=== PATIENT | female | born 1990 | race Caucasian/White ===

== ENCOUNTER 2017-07-27 10:22 | Emergency (ER) | payer MEDICAID ==
[~2017-07-27] VITALS: Ht 172.7 cm; Wt 50.0 kg
[~2017-07-27 10:22] MED LIST: CEPH500C3 PO; NAPR500 PO; PYRI200T4 PO
[2017-07-27 10:24] VITALS: BP 120/77; PULSE 95; RESP 18; TEMP 98.3; O2SAT 98
[2017-07-27] MEDS ORDERED: DICYCLOMINE HCL 20 MG/2 ML VIAL IM ONE (10:45)
[2017-07-27] MEDS ORDERED: SODIUM CHLOR 0.9% 1000 ML INJ 1,000 ML IV ONE (10:45)
[2017-07-27] MEDS ORDERED: ONDANSETRON HCL 4 MG/2 ML VIAL IV PUSH ONE (10:45)
--- NOTE | 2017-07-27 10:47 | PD ---
HPI Chief Complaint: diarrhea Time Seen by Provider: 10:32 Travel History International Travel<30 days: No Contact w/Intl Traveler<30days: No History of Present Illness HPI This is a 26-year-old female who presents to the emergency department with greater than a week of lower abdominal cramping, constant, moderate severity associated with copious watery diarrhea that recently has some blood in it. Patient reports that prior to the onset of the symptoms she was taking clindamycin for a skin infection on her ear. When she started having the diarrhea she stopped taking the clindamycin but her symptoms of only worsened. She feels nauseous and she has not been able to eat much. She has felt feverish but has not checked her temperature. [facility] Past Medical History Diminished Hearing: No : 3 Para: 3 Miscarriage: 0 : 0 Dilation and Curettage (D&C): Yes Tubal Ligation: Yes Past Surgical History Section: Yes Gynecologic Surgery: Yes (c section x 3 2014 last ) Social History Alcohol Use: No Tobacco Use: Yes (2 CIG/DAY) Substance Use: No Allergies-Medications (Allergen,Severity, Reaction): Coded Allergies: No Known Allergies (Verified , 04/25/16) Reported Meds & Prescriptions Reported Meds & Active Scripts Active Review of Systems Except as stated in HPI: all other systems reviewed are Neg Physical Exam Narrative GENERAL:Well appearing, no acute distress SKIN: Focused skin assessment warm and dry. HEAD: Atraumatic. Normocephalic. EYES: Pupils equal and round. No injection or drainage. ENT: Moist mucous membranes NECK: Trachea midline. CARDIOVASCULAR: Regular rate and rhythm. No murmur appreciated. RESPIRATORY: Clear to auscultation. Breath sounds equal bilaterally. GASTROINTESTINAL: Abdomen soft, tender to palpation in the lower abdomen with no rebound or guarding. MUSCULOSKELETAL: No obvious deformities. NEUROLOGICAL: Awake and alert. No obvious cranial nerve deficits. Moving all extremities. PSYCHIATRIC: Appropriate mood and affect; insight and judgment normal. Data Data Last Documented VS Vital Signs Date Time Temp Pulse Resp B/P (MAP) Pulse Ox O2 Delivery O2 Flow Rate FiO2 07/27/17 10:24 98.3 95 18 120/77 (91) 98 Room Air Orders Orders Complete Blood Count With Diff (07/27/17 10:40) Comprehensive Metabolic Panel (07/27/17 10:40) ^ Insert Iv (07/27/17 10:40) Sodium Chlor 0.9% 1000 Ml Inj (Ns 1000 M (07/27/17 10:45) Ondansetron Inj (Zofran Inj) (07/27/17 10:45) Dicyclomine Inj (Bentyl Inj) (07/27/17 10:45) Labs Laboratory Tests Test 07/27/17 10:57 White Blood Count 9.7 TH/MM3 Red Blood Count 4.49 MIL/MM3 Hemoglobin 14.1 GM/DL Hematocrit 40.5 % Mean Corpuscular Volume 90.2 FL Mean Corpuscular Hemoglobin 31.3 PG Mean Corpuscular Hemoglobin Concent 34.7 % Red Cell Distribution Width 13.7 % Platelet Count 182 TH/MM3 Mean Platelet Volume 9.9 FL Neutrophils (%) (Auto) 69.3 % Lymphocytes (%) (Auto) 22.1 % Monocytes (%) (Auto) 7.4 % Eosinophils (%) (Auto) 0.9 % Basophils (%) (Auto) 0.3 % Neutrophils # (Auto) 6.7 TH/MM3 Lymphocytes # (Auto) 2.1 TH/MM3 Monocytes # (Auto) 0.7 TH/MM3 Eosinophils # (Auto) 0.1 TH/MM3 Basophils # (Auto) 0.0 TH/MM3 CBC Comment DIFF FINAL Differential Comment Blood Urea Nitrogen 10 MG/DL Creatinine 0.72 MG/DL Random Glucose 88 MG/DL Total Protein 7.5 GM/DL Albumin 3.5 GM/DL Calcium Level 8.8 MG/DL Alkaline Phosphatase 76 U/L Aspartate Amino Transf (AST/SGOT) 10 U/L Alanine Aminotransferase (ALT/SGPT) 14 U/L Total Bilirubin 0.3 MG/DL Sodium Level 138 MEQ/L Potassium Level 3.9 MEQ/L Chloride Level 101 MEQ/L Carbon Dioxide Level 30.3 MEQ/L Anion Gap 7 MEQ/L Estimat Glomerular Filtration Rate 97 ML/MIN [facility] Medical Decision Making Medical Screen Exam Complete: Yes Emergency Medical Condition: Yes Interpretation(s) no leukocytosis electrolytes within normal limits Differential Diagnosis gastroenteritis, c diff colitis, electrolyte abnormality Narrative Course This is a 26-year-old female who presents to the emergency department with diarrhea, nausea and abdominal cramping ever since she was taking clindamycin. Her symptoms are consistent with likely C. difficile colitis. Labs are all reassuring electrolytes are unremarkable. I do not think she requires CT imaging at this time. I think it is appropriate to discharge her on Flagyl with symptomatic control. Diagnosis Primary Impression: Colitis Patient Instructions: General Instructions Additional Instructions: If you develop lightheadedness, dizziness, persistent vomiting, inability to eat , or severe abdominal pain return to the emergency department. Followup with your primary care physician in 2-3 days if your symptoms have not resolved. Wash your hands aggressively after using the restroom as to not spread your illness to others. Do not return to work until your symptoms have resolved. Take Zofran as needed for nausea. Med/Other Pt SpecificInfo: Prescription(s) given Scripts Metronidazole (Flagyl) 500 Mg Tab 500 MG PO TID for Infection for 10 Days, TAB 0 Refills Prov: Matilde Dempsey MD 07/27/17 Dicyclomine (Bentyl) 10 Mg Cap 10 MG PO TID Y for CRAMPS, #14 CAP 0 Refills Prov: Matilde Dempsey MD 07/27/17 Ondansetron Odt (Zofran Odt) 4 Mg Tab 4 MG SL Q6HR Y for Nausea/Vomiting, #12 TAB 0 Refills Prov: Matilde Dempsey MD 07/27/17 Disposition: 01 DISCHARGE HOME Condition: Stable Matilde Dempsey MD Jul 27, 2017 10:46
[2017-07-27 11:27] LABS: AUTOMATED NEUTROPHIL # 6.7 TH/MM3 (1.8-7.7); BASOPHIL % 0.3 % (0.0-2.0); EOSINOPHIL # 0.1 TH/MM3 (0-0.4); EOSINOPHIL % 0.9 % (0.0-4.0); HEMATOCRIT 40.5 % (35.0-46.0); HEMOGLOBIN 14.1 GM/DL (11.6-15.3); LYMPH % 22.1 % (9.0-44.0); LYMPHOCYTE # 2.1 TH/MM3 (1.0-4.8); MEAN CELL VOLUME 90.2 FL (80.0-100.0); MEAN CORPUSCULAR HEMOGLOBIN 31.3 PG (27.0-34.0); MEAN CORPUSCULAR HGB CONC 34.7 % (32.0-36.0); MEAN PLATELET VOLUME 9.9 FL (7.0-11.0); MONO % 7.4 % (0.0-8.0); MONOCYTE # 0.7 TH/MM3 (0-0.9); NEUT % 69.3 % (16.0-70.0); PLATELET COUNT 182 TH/MM3 (150-450); RED BLOOD COUNT 4.49 MIL/MM3 (4.00-5.30); RED CELL DISTRIBUTION WIDTH 13.7 % (11.6-17.2); WHITE BLOOD COUNT 9.7 TH/MM3 (4.0-11.0)
[2017-07-27 12:19] LABS: ALBUMIN 3.5 GM/DL (3.4-5.0); AST (GOT) 10 U/L (15-37); BICARBONATE 30.3 MEQ/L (21.0-32.0); BLOOD UREA NITROGEN 10 MG/DL (7-18); CALCIUM 8.8 MG/DL (8.5-10.1); CHLORIDE 101 MEQ/L (98-107); CREATININE 0.72 MG/DL (0.50-1.00); GLOMERULAR FILTRATION RATE 97 ML/MIN (>89); GLUCOSE,RANDOM 88 MG/DL (74-106); SODIUM (NA) 138 MEQ/L (136-145)
[2017-07-27 12:20] LABS: ALT (GPT) 14 U/L (10-53)
[2017-07-27 12:22] LABS: ALKALINE PHOSPHATASE 76 U/L (45-117); TOTAL BILIRUBIN ADULT 0.3 MG/DL (0.2-1.0); TOTAL PROTEIN 7.5 GM/DL (6.4-8.2)
[2017-07-27] MEDS ORDERED: DICY10 PO (12:30)
[2017-07-27] MEDS ORDERED: ZOFR4TAB3 SL (12:30)
[2017-07-27] MEDS ORDERED: METR-1 PO (12:31)
== END 2017-07-27 12:51 | disposition home or self-care (01) ==
LOC: NEPD 10:22
DX: K52.9 Noninfective gastroenteritis and colitis, unspecified (principal); F17.210 Nicotine dependence, cigarettes, uncomplicated
CPT/HCPCS: 80053; 85025; 96361; 96372; 96374; 99284; J0500; J2405; J7030